=== PATIENT | female | born 1935 | race Caucasian/White ===

== ENCOUNTER 2016-08-20 09:49 | Day surgery (SDC) | payer MEDICARE ==
[~2016-08-20] VITALS: Ht 163.8 cm; Wt 96.1 kg
[2016-08-20] VITALS (8 sets, daily range): BP systolic 108–144; BP diastolic 49–94; PULSE 66–98; RESP 12–18; O2SAT 92–99
[~2016-08-20 09:49] MED LIST: ADV100INH IH; ASCO500C6 PO; ASPI-973 PO; ATOR20TA PO; CeFAZolin Inj 2 GM in IV Premix 1 EACH IV ONE; HYDR25TA4 PO; ISOS30TA4 PO; LOSA25TA21 PO; METF500T4 PO; MULT-1018 PO; NITR0.4T SL; OMEP40CA36 PO; ROB500 PO; TRAZ-118 PO; VIT1TABL83 PO; WARF2.5T82 PO
[2016-08-20] MEDS ORDERED: Dexamethasone 4 mg/mL Inj ONE (09:50)
[2016-08-20] MEDS ORDERED: fentaNYL-PF 50 mCg/mL 2 mL Inj ONE (09:50)
[2016-08-20] MEDS ORDERED: Ondansetron 2 mg/mL 2 mL Inj ONE (09:50)
[2016-08-20] MEDS ORDERED: Propofol 10,000 mCg/mL 20 mL Inj ONE (09:50)
[2016-08-20] MEDS ORDERED: MetoCLOpramide 5 mg/mL 2 mL Inj ONE (09:50)
[2016-08-20] MEDS ORDERED: Lactated Ringer's 1,000 ML IV ONE (10:00)
[2016-08-20] MEDS ORDERED: CeFAZolin Inj 2 gm / 50mL D5W IV ONE (10:40)
[2016-08-20 11:33] LABS: INR 0.95 ratio
[2016-08-20] MEDS ORDERED: Lactated Ringer's 500 ML IV PRN (12:11)
[2016-08-20] MEDS ORDERED: Lactated Ringer's 1,000 ML IV SCH (12:11)
[2016-08-20] MEDS ORDERED: Ondansetron 2 mg/mL 2 mL Inj IVPUSH PRN (12:15)
[2016-08-20] MEDS ORDERED: EPHEDrine Sulfate 50 mg/mL Inj IVPUSH PRN (12:15)
[2016-08-20] MEDS ORDERED: MetoCLOpramide 5 mg/mL 2 mL Inj IVPUSH PRN (12:15)
[2016-08-20] MEDS ORDERED: hydrALAZINE 20 mg/mL Inj IVPUSH PRN (12:15)
[2016-08-20] MEDS ORDERED: fentaNYL-PF 50 mCg/mL 2 mL Inj IVPUSH PRN (12:15)
[2016-08-20] MEDS ORDERED: Albuterol-Ipratropium 3 mL Inhalation Solution NEB PRN (12:15)
[2016-08-20] MEDS ORDERED: Phenylephrine 10,000 mCg/mL Inj IVPUSH PRN (12:15)
[2016-08-20] MEDS ORDERED: Atropine 0.4 mg/mL Inj IVPUSH PRN (12:15)
[2016-08-20] MEDS ORDERED: HYDROcodone-APAP 5-325 mg Tablet PO PRN (12:30)
--- NOTE | 2016-08-20 13:18 | PCM.ANEP1 ---
Post Anesthesia Phase 1 PACU Phase 1 Assessment Vital Signs Vital Signs Date Time Temp Pulse Resp B/P Pulse Ox O2 Delivery O2 Flow Rate FiO2 08/20/16 13:01 36.6 76 18 111/60 95 Room Air 08/20/16 12:50 78 14 109/55 93 Room Air 08/20/16 12:40 83 12 110/49 92 Room Air 08/20/16 12:35 88 14 108/61 99 Simple Mask 10 08/20/16 12:30 36.4 83 18 131/50 98 Simple Mask 10 08/20/16 10:45 35.9 98 17 144/64 94 Room Air Anesthetic Administered: GA Level of Alertness: Awake, talking WEBB's with Equal Strength: Yes Pain: No Nausea or Vomiting: No Oxygen Delivery: Simple Mask Lungs: Clear to Auscultation, Normal Air Movement Dermatome Level: Full Sensation Rizwan Armstrong MD Aug 20, 2016 13:18
--- NOTE | 2016-08-20 13:18 | PCM.HPANE ---
Patient Data Surgeon Admitting Provider: Attending Provider:Shantal Gonzales MD Primary Care Physician:Mckenna Verduzco Other Provider:Hiral Patelingham Anesthesia Reason for Visit Bladder Cancer Ht/WT & BMI Height (Feet): 5 Height (Inches): 4.5 Weight (Kilograms): 96.16 Body Mass Index 35.00 Allergies Coded Allergies: niacin (Verified Allergy, Unknown, UNKNOWN, 08/15/16) lisinopril (Verified Adverse Reaction, Severe, COUGH, 08/15/16) metoprolol (Verified Adverse Reaction, Severe, PROFOUND BRADYCARDIA, ) oxycodone (Verified Adverse Reaction, Severe, ALTERED MENTAL STATUS, ) Uncoded Allergies: DIP/TETANUS (Adverse Reaction, Severe, RASH @ INJECTION SITE, 10/10/15) Past Anesthesia History Anesthesia History: Denies:: Abnormal Airway, Anesthesia Reactions, Difficult Intubation, Fam Anesthesia Reaction, Fam Malignant Hypertherm, Malignant Hyperthermia Diabetes History Hx Diabetes?: Yes Type of Diabetes: Type II Glycemic Control: Oral Medication MRSA MRSA: No Medications Blood Thinner: Aspirin and Coumadin Hypertension Medication: Yes (HCTZ,LOSARTAN) Active Scripts Warfarin Sodium 2.5 Mg Tablet5 Mg PO DAILY #60 TABLET Ref 0 take 2 tablets each evening for 3 days then adjust dose per instructions from [facility] Cardiology clinic Prov:Filippo García MD 02/28/16 Isosorbide MN ER 30 Mg Tab.er.24h30 Mg PO 0730 #30 TABLET Prov:Filippo García MD 02/28/16 Reported Medications Aspirin 81 Mg Ktbpgl82 Mg PO DAILY Ref 0 to increase to 325mg daily while off coumadin for surgery 08/19/16 Nitroglycerin SL (Nitrostat)0.4 Mg Tab.subl0.4 Mg SL Q5MIN PRN CHEST PAIN #1 BOTTLE 08/15/16 Methocarbamol 500 Mg Wcpubu767 Mg PO TID 08/15/16 Hydrochlorothiazide 25 Mg Rraqxk23 Mg PO DAILY 30 Days Ref 0 08/15/16 Trazodone 100 Mg Hhzpla689 Mg PO HS Ref 0 10/10/15 Omeprazole 40 Mg Capsule.dr40 Mg PO DAILY Ref 0 10/10/15 Losartan Potassium 25 Mg Mlqaav83.5 Mg PO DAILY 10/10/15 Vit B Comp/C/FA/Iron/Vit E (Vitamin B Complex Tablet)1 Each Tablet1 Each PO DAILY 10/10/15 Ascorbic Acid (Vitamin C)500 Mg Capsule.er1,000 Mg PO DAILY 01/01/15 Metformin 500 Mg Huoykf888 Mg PO BIDWM 30 Days Ref 0 07/13/14 Fluticasone/Salmeterol (Advair 100-50 Diskus)60 Puffs/Inh Disk1 Puffs IH BID #1 DISK Ref 0 07/13/14 Multivitamin (Multi Vitamin Daily)1 Each Tablet1 Each PO DAILY 30 Days Ref 0 07/13/14 Atorvastatin (Lipitor)20 Mg Ejojfi31 Mg PO DAILY 30 Days Ref 0 02/22/14 Discontinued Reported Medications Albuterol Neb Soln 2.5 Mg/3 Ml Vial.neb2.5 Mg INHALATION Q4H PRN For Shortness of Breath Ref 0 10/10/15 Discontinued Scripts Aspirin Chew 81 Mg Chew81 Mg PO DAILY #100 TABLET Prov:Filippo García MD 02/28/16 Levofloxacin (Levaquin)750 Mg Yiapgl911 Mg PO DAILYAC #10 TABLET Prov:Owen Sher MD 03/05/16 History History of ENT Problems?: No HEENT History: Positive for:: Cataracts (S/P BILAT EXTRACTIONS) Dysphagia Hearing Problem Sinus Problem (CHRONIC ALLERIC RHINITIS) Denies:: Abnormal Airway Difficult Intubation Glaucoma (HX CHRONIC ALLERGIC CONJUNCTIVITIS) TMJ Hx of Heart Problems?: Yes Cardiovascular History: Positive for:: Atrial Fibrillation Cardiac Surgery (S/P HEART CATH 01/2016 ) Chest Pain (NSTEMI 01/2016) Coronary Artery Disease (OCCLUDED RCA-DECISION MADE TO TX MEDICALLY) Hypertension (hyperlipidemia) Irregular Heartbeat (atrial fibrillation) Peripheral Vascular (PAD LE S/P FEM-FEM BYPASS GRAFT) Denies:: AICD Abdominal Aortic Aneurism Congestive Heart Failure Edema Heart Murmur (ECHO 01/2016 EF 45-50%) Pacemaker Rheumatic Fever Thrombophlebitis Valvular Heart Disease Hx of Respiratory Problem?: Yes Respiratory History: Positive for:: Asthma COPD (PFT'S 03/2011 MOD. SEVERE OBSTRUCTIVE DISEASE) Cough Dyspnea (occ.) Oxygen Administration (off O2 for about 2 years, O2 sats over 90s) Pneumonia (03/2016) Use of Inhalers / NEBS Denies:: Chest Surgery Emphysema Hemoptysis Pulmonary Embolism Tuberculosis Use of C-PAP Machine (refused sleep study) Hx Neurologic Problems?: Yes Neurological History: Positive for:: Headaches (occ) Denies:: Alzheimer's Disease CVA Dementia Dizziness Multiple Sclerosis Parkinson's Disease Seizures Hx of GI Problems?: Yes Gastrointestinal History: Positive for:: Gastroesphageal Reflux Heartburn Denies:: Cirrhosis Diverticulitis Gastrointestinal Bleeding Hepatitis Hiatal Hernia Rectal Bleeding Hx of Problems?: Yes Genitourinary History: Denies:: HX of Hemodialysis Kidney Stones Urinary Tract Infection HX of Peritoneal Dialysis: No Other Pertinent History: S/P MULT. TURBT'S BLADDER CA=CURRENT PROBLEM Female Hx: Denies:: Currently Problems with Breasts? Skin History: Denies:: History Skin Disorders? Pressure Ulcers Hx Musculoskeletal Problems?: Yes Musculoskeletal History: Denies:: Back Injury Degenerative Joint Joint Replacement Musculoskeletal Trauma Systemic Lupus Hx of Psycho/Social Problems?: Yes Psycho Social History: Positive for:: Anxiety (SITUATIONAL) Denies:: Bipolar Disorder Hx Depression Suicide Attempt Hx Surgeries?: Yes (fem pop bypass, cataracts, MULT TURBT'S,HEART CATH) Hx Any Other Health Problems?: Yes Other History: Positive for:: Cancer (bladder) Hospitalization (NSTEMI/PNEUMONIA) Denies:: Endocrine Disease Thyroid Disease History Blood Transfusions: Positive for:: Blood Transfuse Reaction Blood Transfusions Hx Diabetes: Yes Hx Alcohol Use: NoHx Substance Use: No Smoking Status: Former Smoker Have You Smoked inLast 12 mo: NoApprox How Many Cigarettes/day: 45YR HX Stop/Bang S-Snoring: Do You Snore Loudly: No T-Tired: feel tired, fatigued: Yes O-Obsered: Observed not breath: No P-Blood Pressure: treated: Yes B- Body Mass Index > 35 kg/m2: Yes A- Age over 50: Yes N- Neck Large Circumference: No G- Gender Male: No AUBREE Total Score: 4 Risk Assessment Category Category 1A: Patient has history of documented sleep apnea, and HAS NOT received any narcotic, sedative or anesthesia administration during this stay. Category 1B: Patient has history of documented sleep apnea, and HAS received any narcotic , sedative or anesthesia administration during this stay Category 2: Patient has SUSPECTED Obstructive Sleep Apnea, and HAS received any narcotic , sedative or anesthesia administration during this stay. Category 3: Patient has SUSPECTED Obstructive Sleep Apnea and HAS NOT received narcotic, sedative or anesthesia administration during this stay. Category 4: Outpatient in Procedural Areas with known sleep apnea or who screen positive for High Risk via the STOP/BANG questionnaire. Exam Exam General Appearance: Alert, Oriented X3, Cooperative, No Acute Distress HEENT/AIRWAY: MP 2 Lungs: Clear to Auscultation, Normal Air Movement Heart: No Murmurs/Rubs/Gallops, Other (irreg HR) Meds/Labs/Diagnostics Admission Meds Current Medications Lactated Ringer's (Lr) 1,000 ml @ ud STK-MED ONCE IV Last administered on 08/20t 10:00; Start 08/20/16 at 10:00; Stop 08/20/16 at 10:01; Status DC Plan Impression Patient chart reviewed, patient interviewed and anesthestic plan with risks, benefits, and alternatives discussed, and informed consent obtained. NPO Status: MN ASA Physical Status: ASA3 Severe Disease (A fib, COPD) Anesthetic Plan: GA Bene/Risks/Altern/Consents: Yes HP Complete Prior to Induction: Yes Rizwan Armstrong MD Aug 20, 2016 10:19
--- NOTE | 2016-08-20 13:18 | PCM.ANEP2 ---
Post Anesthesia Evaluation ASA/CMS Post Anesthesia VS in Patient's Normal Range?: Yes Resp Stable; Airway Patent?: Yes CV Function & Hydration Stable: Yes Mental Status Recovered?: Yes Pain control Satisfactory?: Yes N/V Control Satisfactory?: Yes Rizwan Armstrong MD Aug 20, 2016 13:18
--- NOTE | 2016-08-20 14:45 | OP ---
[address] [address] OPERATIVE REPORT PATIENT: ALINA DEGROOT : 1935 MR#: [id number] ADMIT: 08/20/2016 JOB ID: [id number] DATE OF SURGERY: 08/20/2016 SURGEON: Shantal Gonzales MD PREOPERATIVE DIAGNOSIS(ES): Bladder cancer. POSTOPERATIVE DIAGNOSIS(ES): Bladder cancer. PROCEDURES: Cystoscopy, biopsy and transurethral resection of bladder tumor, small. ANESTHESIA: General anesthetic, Dr. Armstrong DESCRIPTION OF PROCEDURE: Under general anesthetic, the patient was placed in lithotomy position. Genitalia prepped and draped in a sterile manner. A 22-Yoruba cystoscope was introduced through a normal urethra. Located medial to the left ureteral orifice was a 2 cm area of papillary tumor. Executive Housekeeper biopsies were taken with cup biopsy forceps. The remainder resected with a 26-Yoruba Perez type resectoscope. After removal of chips and achieving hemostasis, it was elected not to leave a Cedeno catheter in place. The patient tolerated the procedure well and left the operating room in good condition.
[2016-08-20] MEDS ORDERED: Belladonna Alk-Opium 60 mg Rectal Suppository RECTAL SCH (20:30)
--- NOTE | 2016-08-21 15:14 | PATH ---
SURGICAL PATHOLOGY Attending Physician:Shantal Gonzales MD () CASE STATUS: Signed Out PATIENT NAME: ALINA DEGROOT PID: [id number] : 1935 DATE COLLECTED:08/20/2016 20:25 SPECIMEN: Bladder, Biopsy CLINICAL HISTORY: 1). BLADDER TUMOR TRIGONE FINAL DIAGNOSIS: 1.BLADDER, TRIGONE, BIOPSY: LOW-GRADE PAPILLARY UROTHELIAL CARCINOMA. No evidence of invasion into lamina propria. No angiolymphatic invasion identified. Muscularis propria is present and not involved. ICD10 CODE C67.0 GROSS DESCRIPTION: The specimen is received in one formalin filled container labeled with the patient's name, sublabeled "bladder tumor trigone" and consists of 2 light naidu portions of tissue which aggregate to 0.3 x 0.3 x 0.2 CM. The specimen is entirely submitted in one cassette. 08/20/2016 DAC MICRO DESCRIPTION: See diagnosis. ICD-9 CODES: CPT CODES: 1: 26396 Electronically Signed Out Mirian Colunga MD [facility] [address], [place] [address] Technical component performed at [facility], [address] [place] [address] Ave[address], [place], [address]
== END 2016-08-20 23:59 | disposition home or self-care (01) ==
LOC: SAS 09:49
PROVIDERS: ATTEND Urology
DX: C67.0 Malignant neoplasm of trigone of bladder (principal); I25.10 Atherosclerotic heart disease of native coronary artery without angina pectoris; I10 Essential (primary) hypertension; E78.5 Hyperlipidemia, unspecified; I48.2 Chronic atrial fibrillation; E11.9 Type 2 diabetes mellitus without complications; G47.33 Obstructive sleep apnea (adult) (pediatric); K21.9 Gastro-esophageal reflux disease without esophagitis; I73.9 Peripheral vascular disease, unspecified; E66.9 Obesity, unspecified; J44.9 Chronic obstructive pulmonary disease, unspecified; F41.9 Anxiety disorder, unspecified; J45.909 Unspecified asthma, uncomplicated; Z86.73 Personal history of transient ischemic attack (TIA), and cerebral infarction without residual deficits; Z95.828 Presence of other vascular implants and grafts; Z87.891 Personal history of nicotine dependence; Z79.82 Long term (current) use of aspirin; Z79.84 Long term (current) use of oral hypoglycemic drugs; Z79.01 Long term (current) use of anticoagulants; Z68.36 Body mass index [BMI] 36.0-36.9, adult
CPT/HCPCS: 36415; 52234; 85610; 88305; J0690; J1100; J1885; J2405; J2765; J3010; J7120

== ENCOUNTER → 2016-12-24 | Day surgery (SDC) | payer MEDICARE ==
[~2016-12-24] VITALS: Ht 162.6 cm; Wt 97.0 kg
[2016-12-24] VITALS (7 sets, daily range): BP systolic 98–138; BP diastolic 51–76; PULSE 14–86; RESP 16–22; O2SAT 94–99
[~2016-12-24] MED LIST changes: +ALBU0.63 INHALATION; -ASCO500C6 PO; +CeFAZolin 2 Gm/50 mL D5W Duplex Bag IV ONE; +Dexamethasone 4 mg/mL Inj IVPUSH PRN; +EPHEDrine Sulfate 50 mg/mL Inj IVPUSH PRN; +HYDROcodone-APAP 5-325 mg Tablet PO PRN; +Labetalol 5 mg/mL 4 mL Inj IV PRN; +Lactated Ringer's 1,000 ML IV SCH; +Lactated Ringer's 500 ML IV PRN; +MetoCLOpramide 5 mg/mL 2 mL Inj IVPUSH PRN; +MetoCLOpramide 5 mg/mL 2 mL Inj ONE; +Ondansetron 2 mg/mL 2 mL Inj IVPUSH PRN; +Phenylephrine 10,000 mCg/mL Inj IVPUSH PRN; +Propofol 10,000 mCg/mL 20 mL Inj ONE; +fentaNYL-PF 50 mCg/mL 2 mL Inj IVPUSH PRN
[2016-12-24 07:32] LABS: Mean Corpuscular Volume 88.7 fL (81-100)
[2016-12-24] MEDS: Lactated Ringer's 1,000 ML IV SCH ×2 (07:37→08:30)
[2016-12-24 07:53] LABS: INR 0.96 ratio
--- NOTE | 2016-12-24 08:26 | PCM.HPANE ---
Patient Data Surgeon Admitting Provider: Attending Provider:Izzy Woodall MD Primary Care Physician:Mckenna Verduzco Other Provider:Meme Patel Anesthesia Reason for Visit Acute Cystitis Ht/WT & BMI Height (Feet): 5 Height (Inches): 4 Weight (Kilograms): 97 Body Mass Index 36.00 Allergies Coded Allergies: niacin (Verified Allergy, Unknown, UNKNOWN, 12/17/16) lisinopril (Verified Adverse Reaction, Severe, COUGH, 12/17/16) metoprolol (Verified Adverse Reaction, Severe, PROFOUND BRADYCARDIA, ) oxycodone (Verified Adverse Reaction, Severe, ALTERED MENTAL STATUS, ) Uncoded Allergies: DIP/TETANUS (Adverse Reaction, Severe, RASH @ INJECTION SITE, 10/10/15) Past Anesthesia History Anesthesia History: Denies:: Abnormal Airway, Anesthesia Reactions, Difficult Intubation, Fam Anesthesia Reaction, Fam Malignant Hypertherm, Malignant Hyperthermia Diabetes History Hx Diabetes?: Yes Type of Diabetes: Type II Glycemic Control: Oral Medication Current Bedside Blood Glucose: 111 MRSA MRSA: No Medications Blood Thinner: Aspirin and Coumadin Last Dose Blood Thinner: Dec 14, 2016 Home Meds Incl Beta Corky: No Active Scripts Warfarin Sodium 2.5 Mg Tablet5 Mg PO DAILY #60 TABLET Ref 0 take 2 tablets each evening for 3 days then adjust dose per instructions from [facility] Cardiology clinic Prov:Filippo García MD 02/28/16 Isosorbide [place] ER 30 Mg Tab.er.24h30 Mg PO 0730 #30 TABLET Prov:Filippo García MD 02/28/16 Reported Medications Albuterol Neb Soln 0.63 Mg/3 Ml Vial.neb0.63 Mg INHALATION Q4H PRN For Shortness of Breath Ref 0 12/17/16 Aspirin 81 Mg Rvjqui98 Mg PO DAILY Ref 0 to increase to 325mg daily while off coumadin for surgery 08/19/16 Nitroglycerin SL (Nitrostat)0.4 Mg Tab.subl0.4 Mg SL Q5MIN PRN CHEST PAIN #1 BOTTLE 08/15/16 Methocarbamol 500 Mg Wzcfdy691 Mg PO TID 08/15/16 Hydrochlorothiazide 25 Mg Anzluo13 Mg PO DAILY 30 Days Ref 0 08/15/16 Trazodone 100 Mg Vczxjq785 Mg PO HS Ref 0 10/10/15 Omeprazole 40 Mg Capsule.dr40 Mg PO DAILY Ref 0 10/10/15 Losartan Potassium 25 Mg Mxizfk62.5 Mg PO DAILY 10/10/15 Vit B Comp/C/FA/Iron/Vit E (Vitamin B Complex Tablet)1 Each Tablet1 Each PO DAILY 10/10/15 Metformin 500 Mg Vxkqrw754 Mg PO BIDWM 30 Days Ref 0 07/13/14 Fluticasone/Salmeterol (Advair 100-50 Diskus)60 Puffs/Inh Disk1 Puffs IH BID #1 DISK Ref 0 07/13/14 Multivitamin (Multi Vitamin Daily)1 Each Tablet1 Each PO DAILY 30 Days Ref 0 07/13/14 Atorvastatin (Lipitor)20 Mg Rbpkym62 Mg PO DAILY 30 Days Ref 0 02/22/14 Discontinued Reported Medications Ascorbic Acid (Vitamin C)500 Mg Capsule.er1,000 Mg PO DAILY 01/01/15 History History of ENT Problems?: No HEENT History: Positive for:: Cataracts (S/P BILAT EXTRACTIONS) Dysphagia Hearing Problem Sinus Problem (CHRONIC ALLERIC RHINITIS) Denies:: Abnormal Airway Difficult Intubation Glaucoma TMJ Denture Type: Full- Upper Full- Lower Teeth Condition: No Teeth Hx of Heart Problems?: Yes Cardiovascular History: Positive for:: Atrial Fibrillation Cardiac Surgery (S/P HEART CATH 01/2016 ) Chest Pain (NSTEMI 01/2016) Coronary Artery Disease Hypertension (HCTZ) Irregular Heartbeat (atrial fibrillation) Denies:: AICD Abdominal Aortic Aneurism Congestive Heart Failure Edema Heart Murmur (ECHO 01/2016 EF 45-50%) Pacemaker Rheumatic Fever Thrombophlebitis Valvular Heart Disease Hx of Respiratory Problem?: Yes Respiratory History: Positive for:: Asthma COPD (PFT'S 03/2011 MOD. SEVERE OBSTRUCTIVE DISEASE) Cough Dyspnea (occ.) Pneumonia (03/2016) Denies:: Chest Surgery Emphysema Hemoptysis Oxygen Administration Pulmonary Embolism Tuberculosis Use of C-PAP Machine (refused sleep study) Hx Neurologic Problems?: Yes Neurological History: Positive for:: Headaches (occ) Denies:: Alzheimer's Disease CVA Dementia Dizziness Multiple Sclerosis Parkinson's Disease Seizures TIA Hx of GI Problems?: Yes Hx of Problems?: Yes Genitourinary History: Denies:: HX of Hemodialysis Kidney Stones Urinary Tract Infection HX of Peritoneal Dialysis: No Female Hx: Denies:: Currently Problems with Breasts? Skin History: Denies:: History Skin Disorders? Pressure Ulcers Hx Musculoskeletal Problems?: Yes Musculoskeletal History: Positive for:: Back Injury (age related discomfort) Denies:: Degenerative Joint Fibromyalgia Joint Replacement Musculoskeletal Trauma Myasthenia Gravis Osteoarthritis Rheumatoid Arthritis Systemic Lupus Hx of Psycho/Social Problems?: Yes Psycho Social History: Positive for:: Anxiety (SITUATIONAL) Denies:: Bipolar Disorder Hx Depression Suicide Attempt Hx Surgeries?: Yes (fem pop bypass, cataracts, MULT TURBT'S,HEART CATH) Hx Any Other Health Problems?: Yes Other History: Positive for:: Cancer (bladder) Hospitalization (NSTEMI/PNEUMONIA) Denies:: Endocrine Disease Thyroid Disease History Blood Transfusions: Positive for:: Accept Blood Products? Blood Transfuse Reaction Denies:: Blood Transfusions Hx Diabetes: YesBedside Blood Glucose: 111 Hx Alcohol Use: NoHx Substance Use: No Smoking Status: Former Smoker Have You Smoked inLast 12 mo: No Stop/Bang Treated for Sleep Apnea?: No Do You Have a CPAP Machine?: No S-Snoring: Do You Snore Loudly: No T-Tired: feel tired, fatigued: Yes O-Obsered: Observed not breath: No P-Blood Pressure: treated: Yes B- Body Mass Index > 35 kg/m2: No A- Age over 50: Yes N- Neck Large Circumference: No G- Gender Male: No AUBREE Total Score: 3 AUBREE Risk Assessment: Low Risk, <3 Yes Risk Assessment Category Category 1A: Patient has history of documented sleep apnea, and HAS NOT received any narcotic, sedative or anesthesia administration during this stay. Category 1B: Patient has history of documented sleep apnea, and HAS received any narcotic , sedative or anesthesia administration during this stay Category 2: Patient has SUSPECTED Obstructive Sleep Apnea, and HAS received any narcotic , sedative or anesthesia administration during this stay. Category 3: Patient has SUSPECTED Obstructive Sleep Apnea and HAS NOT received narcotic, sedative or anesthesia administration during this stay. Category 4: Outpatient in Procedural Areas with known sleep apnea or who screen positive for High Risk via the STOP/BANG questionnaire. Exam Exam Vital Signs Vital Signs Date Time Temp Pulse Resp B/P Pulse Ox O2 Delivery O2 Flow Rate FiO2 12/24/16 07:28 36.5 78 16 138/76 95 Room Air General Appearance: Oriented X3 HEENT/AIRWAY: MP 2 Lungs: Normal Air Movement Heart: Regular Rate/Rhythm Meds/Labs/Diagnostics Admission Meds Current Medications Lactated Ringer's (Lr) 1,000 ml @ 120 mls/hr Q8H20M IV Last administered on t 07:37; Start 12/24/16 at 05:00; Stop 12/24/16 at 13:19 Bedside Blood Glucose: 111 Labs Test 12/24/16 07:20 White Blood Count 7.9th/mm3 (3.8-10.1) Red Blood Count 4.32mil/mm3 (3.90-5.20) Hemoglobin 12.1g/dL (12.0-15.6) Hematocrit 38.3% (35.0-46.0) Mean Corpuscular Volume 88.7fL (81-100) Mean Corpuscular Hemoglobin 28.0pg (27.0-35.0) Mean Corpuscular Hemoglobin Concent 31.6% (32.0-37.0) Red Cell Distribution Width 14.1% (12.3-15.4) Platelet Count 243bil/L (150-400) Prothrombin Time 10.3sec (8.1-12.5) Prothromb Time International Ratio 0.96ratio Sodium Level 141mEq/L (134-144) Potassium Level 4.4mEq/L (3.5-5.2) Chloride Level 101mEq/L (97-108) Carbon Dioxide Level 27mmol/L (18-29) Blood Urea Nitrogen 11mg/dL (8-27) Creatinine 1.09mg/dL (0.57-1.00) Estimat Glomerular Filtration Rate 69mL/min (>59) Glucose Level 111mg/dL (60-99) Calcium Level 9.3mg/dL (8.5-10.1) Plan Impression Patient chart reviewed, patient interviewed and anesthestic plan with risks, benefits, and alternatives discussed, and informed consent obtained. Anesthetic Plan: GA Bene/Risks/Altern/Consents: Yes HP Complete Prior to Induction: Yes Jimi Negron MD Dec 24, 2016 08:26
--- NOTE | 2016-12-24 09:43 | OP ---
[address] [address] OPERATIVE REPORT PATIENT: ALINA DEGROOT : 1935 MR#: [id number] ADMIT: 12/24/2016 JOB ID: [id number] DATE OF SURGERY: 12/24/2016 SURGEON: Izzy Woodall MD ADMISSIONS MANAGER RN: None. PREOPERATIVE DIAGNOSIS(ES): Bladder lesion. POSTOPERATIVE DIAGNOSIS(ES): Bladder lesion. PROCEDURE PERFORMED: 1. Bimanual pelvic exam under anesthesia. 2. Cystoscopy and transurethral resection of bladder tumor (small, approximately less than 1 cm) FINDINGS: 1. Normal bimanual pelvic exam with freely mobile bladder. 2. Low-lying papillary appearing lesion on the left posterior bladder wall. 3. Bilateral orthotopic ureteral orifices. 4. Multiple stellate scars consistent with history of TURBT. ANESTHESIA: General. ESTIMATED BLOOD LOSS: None. SPECIMENS: Bladder lesion from the posterior bladder wall. COMPLICATIONS: None. CONDITION: Stable. INDICATIONS FOR PROCEDURE: The patient is an 81-year-old woman kindly referred by Dr. Shantal Gonzales for transurethral resection of bladder tumor. She does have a history of bladder cancer and now presents for the aforementioned procedure. DESCRIPTION OF PROCEDURE: After informed consent, the patient was taken to the operating room. A time-out was performed identifying correct patient, surgical site, and procedure. General anesthesia was induced. She was given intravenous antibiotics just prior to start of the procedure. She was placed in lithotomy position and all pressure points were identified and appropriately padded. A bimanual pelvic exam was performed. It was normal. Her genitals were then prepped and draped in the usual sterile fashion. A 26-Faroese rigid cystoscope was applied to the patient's urethra and advanced into the bladder. The bladder was systematically inspected. The findings were aforementioned. The left posterior bladder base there was a low-lying papillary appearing adhesion that was small approximately less than 1 cm. This was resected with a 24-Faroese loop. It was cauterized at the base and the perimeter of the lesion. The bladder was drained. It was reinspected. There was no bleeding. Instrument was then removed from the patient's body. She was reversed from general anesthesia and taken to PACU in stable condition. [facility]
--- NOTE | 2016-12-24 09:43 | PCM.ANEP1 ---
Post Anesthesia PACU Phase 1 Assessment Vital Signs Vital Signs Date Time Temp Pulse Resp B/P Pulse Ox O2 Delivery O2 Flow Rate FiO2 12/24/16 09:30 80 19 123/61 94 Room Air 12/24/16 09:25 36.5 79 20 98/51 94 Room Air 12/24/16 09:20 80 16 106/59 94 Room Air 12/24/16 09:15 86 19 123/65 98 Room Air 12/24/16 09:10 36.9 86 22 108/59 99 Room Air 12/24/16 07:28 36.5 78 16 138/76 95 Room Air Anesthetic Administered: GA Level of Alertness: Awake, talking Pain: No Nausea or Vomiting: No CV Function & Hydration Stable: Yes Airway Device: Lungs: Normal Air Movement PACU Phase 2 Assessment Patient Instructions Provided: N/A Jimi Negron MD Dec 24, 2016 09:43
== END | disposition home or self-care (01) ==
LOC: SAS 06:24
PROVIDERS: ATTEND Urology
DX: N32.9 Bladder disorder, unspecified (principal); Z85.51 Personal history of malignant neoplasm of bladder; I48.91 Unspecified atrial fibrillation; G47.30 Sleep apnea, unspecified; I73.9 Peripheral vascular disease, unspecified; K21.9 Gastro-esophageal reflux disease without esophagitis; E11.9 Type 2 diabetes mellitus without complications; E78.5 Hyperlipidemia, unspecified; J45.909 Unspecified asthma, uncomplicated; I25.10 Atherosclerotic heart disease of native coronary artery without angina pectoris; F17.210 Nicotine dependence, cigarettes, uncomplicated; Z95.1 Presence of aortocoronary bypass graft; Z79.01 Long term (current) use of anticoagulants; Z79.82 Long term (current) use of aspirin; Z79.84 Long term (current) use of oral hypoglycemic drugs
CPT/HCPCS: 36415; 52234; 80048; 85027; 85610; 93005; J2765; J7120